=== PATIENT | male | born 1975 | race Caucasian/White ===

== ENCOUNTER 2023-06-15 23:39 | Inpatient (IN) | payer BC ==
[~2023-06-15] VITALS: Ht 177.8 cm; Wt 72.8 kg
[2023-06-16] VITALS (43 sets, daily range): BP systolic 108–158; BP diastolic 18–93; PULSE 53–79; RESP 11–42; TEMP 97.4–98.8
[2023-06-16 00:42] LABS: BASOPHILS % 0.2 % (0.0-2.0); DIFFERENTIAL COMMENT 0; HEMATOCRIT. 43.7 % (42.0-52.0); HEMOGLOBIN. 15.8 g/dL (14.0-18.0); LYMPHOCYTES % 10.5 % (20.0-50.0); MEAN CORPUSCULAR HEMOGLOBIN 30.6 pg (28.0-32.0); MEAN CORPUSCULAR VOLUME 84.8 fL (80.0-94.0); MEAN PLATELET VOLUME 7.7 fl (7.4-10.4); MONOCYTES % 4.6 % (2.0-8.0); NEUTROPHILS % 83.7 % (40.0-76.0); PLATELET 168 x1000/uL (130-400); RED BLOOD CELL COUNT 5.16 mill/uL (4.7-6.1); RED CELL DISTRIBUTION WIDTH 13.1 % (11.6-14.6); WHITE BLOOD COUNT 10.8 x1000/uL (4.5-11.0)
[2023-06-16] MEDS ORDERED: LEVETIRACETAM 500MG PREMIX 100 ML IV ONE ×2 (00:45→14:02)
[2023-06-16 00:51] LABS: CHLORIDE 105 mEq/L (98-107); INDEX HEMOLYSI 1 (1-3); INDEX ICTERIC 1 (1-4); INDEX LIPEMIC 1 (1-3); POTASSIUM 3.6 mEq/L (3.5-5.1); SODIUM 134 mEq/L (136-145)
[2023-06-16 01:02] LABS: ALANINE AMINOTRANSFERASE 34 IU/L (13-61); ALBUMIN 3.5 g/dL (3.4-5.0); ASPARTATE AMINOTRANSFERASE 16 IU/L (15-37); BILIRUBIN TOTAL 0.5 mg/dL (0.1-1.0); CALCIUM 8.3 mg/dL (8.5-10.1); CARBON DIOXIDE 25 mEq/L (21-32); CREATINE KINASE 104 IU/L (39-308); CREATININE 0.9 mg/dL (0.6-1.3); ETHANOL BLOOD < 10 mg/dL (-10); GLUCOSE 125 mg/dL (70-105); LDL CHOLESTEROL 87 mg/dL (5-100); NT PRO B-TYPE NATRIURETIC PEP 50 pg/mL (5-125); PROTEIN TOTAL 6.3 g/dL (6.0-8.3); TROPONIN I HIGH SENSITIVITY 5 ng/L (<78); UREA NITROGEN BLOOD 17 mg/dL (7-21)
[2023-06-16 01:20] LABS: INR 1.1; PROTHROMBIN TIME 11.7 sec (9.6-11.0)
[2023-06-16] MEDS ORDERED: IOHEXOL-350 100 ML BOTTLE ONE (03:34)
[2023-06-16] MEDS ORDERED: THROMBIN (BOVINE) 5000 UNITS/VIAL TOP ONE ×2 (07:44→16:55)
[2023-06-16] MEDS ORDERED: BACITRACIN 15GM TUBE TOP ONE ×2 (07:45→14:11)
[2023-06-16] MEDS ORDERED: LIDOCAINE HCL 1%/EPI 1:200,000 30 ML VIAL ONE (07:45)
[2023-06-16] MEDS ORDERED: GENTAMICIN SULF 40MG/ML 2ML VIAL ONE (07:45)
[2023-06-16] MEDS: DEXAMETHASONE 4MG/ML 1ML VIAL IV SCH ×3 (08:31→18:56)
[2023-06-16] MEDS: DEXT 5%/LACTATED RINGERS 1,000 ML IV SCH (08:31)
[2023-06-16] MEDS: LEVETIRACETAM 500MG PREMIX 100 ML IV SCH ×2 (09:21→22:19)
[2023-06-16] MEDS ORDERED: LISI20TA31 PO (11:02)
[2023-06-16] MEDS ORDERED: AMLO5TAB88 PO (11:09)
[2023-06-16] MEDS ORDERED: Kratom PO (11:09)
[2023-06-16] MEDS ORDERED: GADOTERATE MEGLUMINE 5 MMOL/10 ML VIAL IV ONE (11:43)
[2023-06-16] MEDS ORDERED: SODIUM CHLORIDE 0.9% 1,000 ML IV SCH (13:15)
[2023-06-16] MEDS ORDERED: CLONIDINE 0.1MG TABLET PO PRN (13:15)
[2023-06-16] MEDS ORDERED: ROCURONIUM BROMIDE 10MG/ML VIAL 5ML IV ONE ×2 (13:25→14:49)
[2023-06-16] MEDS ORDERED: DEXAMETHASONE 4MG/ML 1ML VIAL ONE (13:25)
[2023-06-16] MEDS ORDERED: PROPOFOL 200MG/20ML VIAL IV ONE (13:25)
[2023-06-16] MEDS ORDERED: NEOSTIGMINE METHYLSULFATE 1MG/ML 10 ML VIAL ONE (13:25)
[2023-06-16] MEDS ORDERED: GLYCOPYRROLATE 0.2 MG/ML 2ML VIAL ONE ×2 (13:26)
[2023-06-16] MEDS ORDERED: MIDAZOLAM HCL 2 MG/2 ML VIAL ONE (13:26)
[2023-06-16] MEDS ORDERED: FENTANYL CITRATE/PF 50MCG/ML 2ML VIAL ONE (13:26)
[2023-06-16] MEDS ORDERED: CEFAZOLIN SODIUM 1000MG/VIAL ONE (13:59)
[2023-06-16] MEDS ORDERED: MANNITOL 20% 500 ML IV ONE (14:01)
[2023-06-16] MEDS ORDERED: HYDROMORPHONE HCL/PF 2MG/ML CPJ ONE (14:52)
[2023-06-16] MEDS ORDERED: DESMOPRESSIN ACETATE 22 MCG in SODIUM CHLORIDE 0.9% 50 ML IV NR (15:30)
[2023-06-16] MEDS ORDERED: NALOXONE HCL 0.4MG/ML VIAL IV PRN (17:45)
[2023-06-16] MEDS ORDERED: DEXT 5%/LACTATED RINGERS 500 ML IV NR (19:30)
[2023-06-16] MEDS ORDERED: CEFAZOLIN SODIUM 1000MG/VIAL IV SCH (22:00)
[2023-06-16] MEDS: CEFAZOLIN 1000MG PREMIX 50 ML IV SCH (22:18)
[2023-06-16] MEDS: NICARDIPINE 100 MG in SODIUM CHLORIDE 0.9% 60 ML IV PRN (23:00)
[2023-06-17] VITALS (97 sets, daily range): BP systolic 97–143; BP diastolic 47–73; PULSE 61–113; RESP 8–109; TEMP 97.2–97.9
[2023-06-17] MEDS: DEXAMETHASONE 4MG/ML 1ML VIAL IV SCH ×5 (00:15→23:47)
[2023-06-17] MEDS: MORPHINE SULFATE 4 MG/ML CPJ (NOT FOR IM USE) IV PRN ×6 (00:28→21:08)
[2023-06-17] MEDS: ONDANSETRON HCL 4MG/2ML INJ IV PRN ×2 (01:48→09:20)
[2023-06-17] MEDS: DEXT 5%/LACTATED RINGERS 1,000 ML IV SCH ×2 (03:08→18:51)
[2023-06-17] MEDS: NICARDIPINE 100 MG in SODIUM CHLORIDE 0.9% 60 ML IV PRN ×2 (04:12→18:51)
[2023-06-17] MEDS: CEFAZOLIN 1000MG PREMIX 50 ML IV SCH ×3 (05:14→21:06)
[2023-06-17 06:26] LABS: HEMOGLOBIN. 15.2 g/dL (14.0-18.0); MEAN CORPUSCULAR HGB CONC 35.4 g/dL (31.0-37.0); MEAN CORPUSCULAR VOLUME 84.8 fL (80.0-94.0); MEAN PLATELET VOLUME 8.4 fl (7.4-10.4); PLATELET 219 x1000/uL (130-400); RED BLOOD CELL COUNT 5.07 mill/uL (4.7-6.1); RED CELL DISTRIBUTION WIDTH 12.8 % (11.6-14.6); WHITE BLOOD COUNT 18.9 x1000/uL (4.5-11.0)
[2023-06-17 06:38] LABS: DIFFERENTIAL COMMENT 1
[2023-06-17 06:51] LABS: CHLORIDE 106 mEq/L (98-107); INDEX HEMOLYSI 1 (1-3); INDEX ICTERIC 1 (1-4); INDEX LIPEMIC 1 (1-3); POTASSIUM 3.9 mEq/L (3.5-5.1); SODIUM 135 mEq/L (136-145)
[2023-06-17 07:00] LABS: CALCIUM 8.7 mg/dL (8.5-10.1); CARBON DIOXIDE 24 mEq/L (21-32); CREATININE 0.7 mg/dL (0.6-1.3); GLUCOSE 184 mg/dL (70-105); UREA NITROGEN BLOOD 14 mg/dL (7-21)
[2023-06-17] MEDS: LEVETIRACETAM 500MG PREMIX 100 ML IV SCH ×2 (09:07→21:06)
[2023-06-17 11:23] LABS: PLATELET ESTIMATE NORMAL
[2023-06-17] MEDS: HYDRALAZINE 20MG/ML VIAL IV PRN (21:07)
[2023-06-18] VITALS (92 sets, daily range): BP systolic 99–144; BP diastolic 46–68; PULSE 64–108; RESP 5–22; TEMP 97.6–98.6
[2023-06-18] MEDS: MORPHINE SULFATE 4 MG/ML CPJ (NOT FOR IM USE) IV PRN ×6 (01:05→21:40)
[2023-06-18] MEDS: NICARDIPINE 100 MG in SODIUM CHLORIDE 0.9% 60 ML IV PRN ×2 (03:48→13:50)
[2023-06-18] MEDS: HYDRALAZINE 20MG/ML VIAL IV PRN (03:49)
[2023-06-18] MEDS: DEXAMETHASONE 4MG/ML 1ML VIAL IV SCH (05:45)
[2023-06-18] MEDS: CEFAZOLIN 1000MG PREMIX 50 ML IV SCH ×2 (05:45→14:38)
[2023-06-18] MEDS: DEXT 5%/LACTATED RINGERS 1,000 ML IV SCH ×2 (06:45→20:57)
[2023-06-18] MEDS: LEVETIRACETAM 500MG PREMIX 100 ML IV SCH ×2 (08:30→20:57)
[2023-06-18] MEDS: ACETAMINOPHEN 325MG TABLET PO PRN (19:54)
[2023-06-19] VITALS (67 sets, daily range): BP systolic 89–141; BP diastolic 44–87; PULSE 47–82; RESP 10–25; TEMP 97.6–98.7
[2023-06-19] MEDS: MORPHINE SULFATE 4 MG/ML CPJ (NOT FOR IM USE) IV PRN ×5 (00:17→22:29)
[2023-06-19] MEDS: ACETAMINOPHEN 325MG TABLET PO PRN (03:39)
[2023-06-19 05:53] LABS: CHLORIDE 102 mEq/L (98-107); INDEX HEMOLYSI 1 (1-3); INDEX ICTERIC 1 (1-4); INDEX LIPEMIC 1 (1-3); POTASSIUM 3.9 mEq/L (3.5-5.1); SODIUM 134 mEq/L (136-145)
[2023-06-19 05:54] LABS: HEMATOCRIT. 36.9 % (42.0-52.0); HEMOGLOBIN. 12.8 g/dL (14.0-18.0); MEAN CORPUSCULAR HEMOGLOBIN 29.8 pg (28.0-32.0); MEAN CORPUSCULAR HGB CONC 34.8 g/dL (31.0-37.0); MEAN CORPUSCULAR VOLUME 85.5 fL (80.0-94.0); MEAN PLATELET VOLUME 7.9 fl (7.4-10.4); PLATELET 179 x1000/uL (130-400); RED BLOOD CELL COUNT 4.32 mill/uL (4.7-6.1); RED CELL DISTRIBUTION WIDTH 12.5 % (11.6-14.6); WHITE BLOOD COUNT 12.4 x1000/uL (4.5-11.0)
[2023-06-19 06:00] LABS: CALCIUM 8.4 mg/dL (8.5-10.1); CARBON DIOXIDE 27 mEq/L (21-32); CREATININE 0.6 mg/dL (0.6-1.3); GLUCOSE 150 mg/dL (70-105); UREA NITROGEN BLOOD 16 mg/dL (7-21)
[2023-06-19 06:12] LABS: DIFFERENTIAL COMMENT 1
[2023-06-19] MEDS: DEXT 5%/LACTATED RINGERS 1,000 ML IV SCH ×2 (08:14→21:27)
[2023-06-19] MEDS: LEVETIRACETAM 500MG PREMIX 100 ML IV SCH ×2 (08:16→21:27)
[2023-06-19 11:54] LABS: PLATELET ESTIMATE NORMAL
[2023-06-19] MEDS ORDERED: IPRATROPIUM/ALBUTEROL 0.5-3(2.5)MG/3ML NEB HHN PRN (12:15)
[2023-06-20] VITALS (26 sets, daily range): BP systolic 98–132; BP diastolic 55–90; PULSE 47–77; RESP 12–20; TEMP 97.5–98.1
[2023-06-20] MEDS: HYDROCODONE/ACETAMINOPHEN 5/325MG TABLET PO PRN (00:31)
[2023-06-20] MEDS: MORPHINE SULFATE 4 MG/ML CPJ (NOT FOR IM USE) IV PRN ×3 (03:05→21:58)
[2023-06-20 05:46] LABS: BASOPHILS % 0.1 % (0.0-2.0); EOSINOPHILS % 0.6 % (0.0-5.0); HEMATOCRIT. 34.2 % (42.0-52.0); HEMOGLOBIN. 12.3 g/dL (14.0-18.0); LYMPHOCYTES % 21.5 % (20.0-50.0); MEAN CORPUSCULAR HEMOGLOBIN 30.3 pg (28.0-32.0); MEAN CORPUSCULAR HGB CONC 35.9 g/dL (31.0-37.0); MEAN CORPUSCULAR VOLUME 84.5 fL (80.0-94.0); MEAN PLATELET VOLUME 7.9 fl (7.4-10.4); MONOCYTES % 11.4 % (2.0-8.0); NEUTROPHILS % 66.4 % (40.0-76.0); PLATELET 132 x1000/uL (130-400); RED BLOOD CELL COUNT 4.05 mill/uL (4.7-6.1); RED CELL DISTRIBUTION WIDTH 12.8 % (11.6-14.6); WHITE BLOOD COUNT 6.6 x1000/uL (4.5-11.0)
[2023-06-20 06:02] LABS: CHLORIDE 106 mEq/L (98-107); INDEX HEMOLYSI 1 (1-3); INDEX ICTERIC 1 (1-4); INDEX LIPEMIC 1 (1-3); POTASSIUM 3.6 mEq/L (3.5-5.1); SODIUM 137 mEq/L (136-145)
[2023-06-20 06:08] LABS: CALCIUM 7.7 mg/dL (8.5-10.1); CARBON DIOXIDE 26 mEq/L (21-32); CREATININE 0.8 mg/dL (0.6-1.3); GLUCOSE 105 mg/dL (70-105); UREA NITROGEN BLOOD 20 mg/dL (7-21)
[2023-06-20] MEDS: DEXT 5%/LACTATED RINGERS 1,000 ML IV SCH ×2 (06:32→18:55)
[2023-06-20] MEDS: LEVETIRACETAM 500MG PREMIX 100 ML IV SCH (08:22)
[2023-06-20] MEDS ORDERED: HYDRALAZINE 10 MG in SODIUM CHLORIDE 0.9% 49.5 ML IV PRN (13:15)
[2023-06-21] VITALS: BP 112/60; PULSE 60; RESP 14; TEMP 97.9
[2023-06-21] MEDS: MORPHINE SULFATE 4 MG/ML CPJ (NOT FOR IM USE) IV PRN (01:44)
[2023-06-21] MEDS: DEXT 5%/LACTATED RINGERS 1,000 ML IV SCH ×2 (01:45→11:59)
[2023-06-21] MEDS ORDERED: DOCUSATE SODIUM 100MG CAPSULE PO PRN (02:00)
[2023-06-21] MEDS ORDERED: LACTULOSE 20G/30ML UDC PO PRN (02:00)
[2023-06-21 04:00] VITALS: BP 112/67; PULSE 66; RESP 14; TEMP 97.5
[2023-06-21 08:00] VITALS: BP 101/68; PULSE 60; RESP 20; TEMP 97.9
[2023-06-21 12:00] VITALS: BP 117/66; PULSE 77; RESP 20; TEMP 97.9
[2023-06-21 16:00] VITALS: BP 117/66; PULSE 77; RESP 20; TEMP 97.9
[2023-06-21] MEDS ORDERED: HYDR-4001 PO ×2 (16:51)
[2023-06-21] MEDS ORDERED: GADOTERATE MEGLUMINE 5 MMOL/10 ML VIAL IV ONE (17:30)
[2023-06-21 20:00] VITALS: BP_SYST 109; BP_SYST 133; BP_DIAS 61; BP_DIAS 68; PULSE 76; RESP 18; TEMP 98.1
[2023-06-21] MEDS: HYDROCODONE/ACETAMINOPHEN 5/325MG TABLET PO PRN (23:44)
[2023-06-22] VITALS: BP 108/60; PULSE 69; RESP 18; TEMP 98.6
[2023-06-22 04:00] VITALS: BP 109/65; PULSE 60; RESP 18; TEMP 97.9
[2023-06-22 08:00] VITALS: BP 110/55; PULSE 58; RESP 18; TEMP 97.4
[2023-06-22 12:00] VITALS: BP 102/75; PULSE 64; RESP 19; TEMP 98.1
[2023-06-22 15:04] VITALS: BP 102/75; PULSE 64; TEMP 98.1; O2SAT 96
[2023-06-23] MEDS ORDERED: HYDR-4009 MT (11:42)
[2023-06-23] MEDS ORDERED: HYDR-4350 MT (14:20)
== END 2023-06-22 15:46 | disposition home health service (06) | DRG 25 ==
LOC: ER 23:39 → MICUSO 06-16 00:58 → EDBEDREQ 06-16 01:00 → EDBEDREQSVC 06-16 01:00 → MICUSO 06-16 06:45 → 6EST 06-20 13:06
PROVIDERS: ADMIT Internal Medicine; ATTEND Internal Medicine
PROC: 00B10ZZ Excision of Cerebral Meninges, Open Approach (ICD-10-PCS; principal; 2023-06-16)
PROC: 4A00X4Z Measurement of Central Nervous Electrical Activity, External Approach (ICD-10-PCS; 2023-06-16)
DX: D32.0 Benign neoplasm of cerebral meninges (principal); G93.41 Metabolic encephalopathy; E87.1 Hypo-osmolality and hyponatremia; G81.91 Hemiplegia, unspecified affecting right dominant side; R47.01 Aphasia; I10 Essential (primary) hypertension; M51.36 Other intervertebral disc degeneration, lumbar region
CPT/HCPCS: 36415; 70496; 70498; 70544; 70553; 71045; 80048; 80053; 80320; 82550; 83721; 83880; 84484; 85025; 86850; 86900; 88304; 88305; 88331; 92523; 92610; 93005; 95829; 97110; 97112; 97116; 97163; 97167; 97530; 99291; A9577; J0360; J0690; J1100; J1170; J1580; J1953; J2250; J2270; J2405; J2597; J2704; J2710; J3010; J3490; J7030; J7050; J7120; J7121; Q9967; A4315; C1713; G0480